=== PATIENT | female | born 1960 | race Caucasian/White ===

== ENCOUNTER 2017-06-17 12:25 | Emergency (ER) | payer BC ==
[~2017-06-17] VITALS: Ht 170.2 cm; Wt 78.6 kg
[2017-06-17 13:40] LABS: BASOPHIL COUNT 0.1 K/uL (0-0.1); EOSINOPHIL (%) 0.9 % (0-5); EOSINOPHIL COUNT 0.1 K/uL (0-0.3); HEMATOCRIT 40.1 % (36.0-46.0); IMMATURE GRANULOCYTE (%) 0.4 % (0.0-0.7); INSTRUMENT ABS NEUTROPHIL CT 4.6 K/uL; LYMPHOCYTE COUNT 2.3 K/uL (1.0-2.8); MCH 30.5 PG (29.0-34.0); MCHC 34.7 G/DL (30.0-36.0); MCV 87.9 FL (83-99); MEAN PLAT.VOLUME 8.4 uM^3 (9.5-12.4); MONOCYTE (%) 7.9 % (3-12); MONOCYTE COUNT 0.6 K/uL (0-0.8); NEUTROPHIL (%) 60.1 % (45-76); NEUTROPHIL COUNT 4.6 K/uL (1.8-6.4); PLATELET COUNT 263 K/uL (156-360); RBC DIS.WIDTH-CV 12.4 % (11.8-14.6); RBC DIS.WIDTH-SD 39.4 % (39-53); RED BLOOD COUNT 4.56 M/uL (3.80-5.20); WHITE BLOOD COUNT 7.6 K/uL (4.1-10.2)
[2017-06-17] MEDS ORDERED: CLARITIN10 M3 PO (13:51)
[2017-06-17 13:57] LABS: CHLORIDE 105 mEq/L (99-109); POTASSIUM 4.7 mEq/L (3.7-5.4); SODIUM 140 mEq/L (136-147); TROP-I INTERPRETATION NEGATIVE; TROPONIN-I < 0.01 ng/mL (0.0-0.30)
[2017-06-17 13:59] LABS: GLUCOSE 101 mg/dL (70-99)
[2017-06-17 14:00] LABS: ANION GAP 11 MEQ/L (2-14)
[2017-06-17 14:01] LABS: TOTAL BILIRUBIN 0.4 mg/dL (0.0-1.0)
[2017-06-17 14:03] LABS: ALKALINE PHOSPHATASE 77 IU/L (3-129); GFR ESTIMATE (CALCULATED) > 59 mL/min/
[2017-06-17 14:04] LABS: UREA NITROGEN (BUN) 14 mg/dL (9-23)
[2017-06-17 17:23] LABS: TROP-I INTERPRETATION NEGATIVE; TROPONIN-I < 0.01 ng/mL (0.0-0.30)
[2017-06-17 17:47] VITALS: BP 130/66
== END 2017-06-17 17:48 | disposition home or self-care (01) ==
LOC: EME 12:25
PROVIDERS: Physician Assistant Medical
DX: R07.9 Chest pain, unspecified (principal); R20.2 Paresthesia of skin; I10 Essential (primary) hypertension
CPT/HCPCS: 70450; 70551; 71020; 80053; 84484; 85025; 93005; 99281; 99284